=== PATIENT | female | born 1940 | race Caucasian/White ===

== ENCOUNTER → 2016-09-23 | Outpatient (CLI) | payer MEDICARE ==
[~2016-09-23] MED LIST: AMLO2.5T PO; ATEN1TAB73 PO; CIPR250T52 PO; METR-1 PO; PROBCAP4 PO
== END ==
LOC: PLAB 10:20
PROVIDERS: ATTEND Internal Medicine Gastroenterology
DX: R10.32 Left lower quadrant pain (principal)
CPT/HCPCS: 36415; 82565; 84520

== ENCOUNTER 2017-03-13 12:25 | Emergency (ER) | payer MEDICARE ==
[~2017-03-13] VITALS: Ht 162.6 cm; Wt 56.2 kg
[2017-03-13 12:25] VITALS: BP 162/78; PULSE 70; RESP 16; TEMP 98.2; O2SAT 98
[~2017-03-13 12:25] MED LIST changes: -CIPR250T52 PO; -METR-1 PO
[2017-03-13 13:50] LABS: BLOOD, URINE NEG (NEG); GLUCOSE,URINE NEG (NEG); KETONE, URINE NEG (NEG); NITRITE,URINE NEG (NEG)
[2017-03-13] MEDS ORDERED: CIPR250T52 PO (13:50)
[2017-03-13] MEDS ORDERED: METR-1 PO (13:50)
--- NOTE | 2017-03-13 13:50 | PD ---
HPI Chief Complaint: GI Complaint Time Seen by Provider: 13:44 Travel History International Travel<30 days: No Contact w/Intl Traveler<30days: No Traveled to known affect area: No History of Present Illness HPI 77-year-old female here with complaint of abdominal pressure, frequent stools and flatus. Patient has had now 6 days of pressure within the suprapubic and left lower quadrant. Associated frequent stools. This is not diarrhea, but is soft and formed. No hematochezia. She notes associated frequent flatus. Patient states that she has had several bouts of this over the course the last several years most recently September 2016. She has a history of diverticulosis but no diverticulitis. Patient states that in September [address] scan that was negative for diverticulitis in association with this pain. She was diagnosed with possible colitis versus treated with Cipro and Flagyl with improvement of her symptoms within 2-3 days. No fevers, chills, urinary symptoms. PFSH Past Medical History Arthritis: Yes (OSTEO) Autoimmune Disease: No Cancer: No Cardiovascular Problems: Yes (HTN) High Cholesterol: Yes Diabetes: No Diminished Hearing: No Endocrine: No Gastrointestinal Disorders: Yes (GAS PAIN; PRESSURE ) Glaucoma: No Genitourinary: Yes (CYSTOCELE; BLADDER PROLAPSE REPAIRED) Hepatitis: No Hiatal Hernia: No Hypertension: Yes Immune Disorder: No Implanted Vascular Access Dvce: No Medical other: No Musculoskeletal: No Neurologic: No Psychiatric: No Reproductive: Yes (HYSTERECTOMY) Respiratory: Yes (HX PNEUMONIA YEARS AGO) Thyroid Disease: No Tetanus Vaccination: Unknown ?: Not Menopausal: Yes Tubal Ligation: Yes Past Surgical History Abdominal Surgery: Yes (SABRINA.) AICD: No Body Medical Devices: PT WEARS A PESSARY Cardiac Surgery: No Cholecystectomy: Yes Ear Surgery: No Endocrine Surgery: No Eye Surgery: No Genitourinary Surgery: Yes (INGUINAL HERNIA LEFT X 2, FEMORAL HERNIA) Gynecologic Surgery: Yes (TUBAL LIGATION, TOTAL HYSTERECTOMY WITH A AND P REPAIR) Hysterectomy: Yes Joint Replacement: No Neurologic Surgery: No Oral Surgery: Yes (T&A) Pacemaker: No Thoracic Surgery: Yes (LAURA BREAST BX X 3 ALL BENIGN) Tonsillectomy: Yes Other Surgery: Yes (BREAST BIOPSY X 3) Social History Alcohol Use: No Tobacco Use: Yes (VAPOR) Substance Use: No Allergies-Medications (Allergen,Severity, Reaction): Coded Allergies: Lisinopril (Unverified Adverse Reaction, Severe, GI upset, 03/13/17) Reported Meds & Prescriptions Reported Meds & Active Scripts Active Flagyl (Metronidazole) 500 Mg Tab 500 Mg PO TID 7 Days Cipro (Ciprofloxacin HCl) 250 Mg Tab 750 Mg PO BID 7 Days Review of Systems Except as stated in HPI: all other systems reviewed are Neg Physical Exam Narrative GENERAL: Well-appearing female in no acute distress SKIN: Focused skin assessment warm/dry. HEAD: Normocephalic. EYES: No scleral icterus. No injection or drainage. ENT: Mucous membranes pink and moist. NECK: Supple CARDIOVASCULAR: Regular rate and rhythm. RESPIRATORY: No accessory muscle use. GASTROINTESTINAL: Abdomen soft, minimal suprapubic and left lower quadrant tenderness to palpation without rebound or guarding MUSCULOSKELETAL: No obvious deformities. No edema. NEUROLOGICAL: Awake and alert. Normal speech. PSYCHIATRIC: Appropriate mood and affect; insight and judgment normal. Data Data Last Documented VS Vital Signs Date Time Temp Pulse Resp B/P Pulse Ox O2 Delivery O2 Flow Rate FiO2 03/13/17 12:25 98.2 70 16 162/78 98 Orders Urinalysis - C+S If Indicated (03/13/17 13:42) MDM Medical Decision Making Medical Screen Exam Complete: Yes Emergency Medical Condition: Yes Medical Record Reviewed: Yes Differential Diagnosis 77-year-old female with history of 6 days of suprapubic and left lower quadrant pressure, frequent stools and flatus. History of similar episodes periodically over the last several years. Symptoms sound consistent with colitis or diverticulitis though patient has had negative CT scans in association with this in the past. Differential includes inflammatory bowel disease, irritable bowel disease and less likely peritoneal pathology given her overall benign abdominal examination. Narrative Course Patient was offered laboratory testing and CT imaging but declines, states that she's had similar episodes in the past and requests simply treatment. Given her history and benign abdominal examination, I think a course of Cipro and Flagyl is a reasonable option. Patient was given prescriptions for these and discharged home with return instructions. Diagnosis Primary Impression: Colitis Referrals: Primary Care Physician as needed Additional Instructions: Antibiotics as prescribed. Follow-up with primary care and/or GI physician is symptoms persist and return to the ER for the warning signs discussed. Med/Other Pt SpecificInfo: Prescription(s) given Scripts Metronidazole (Flagyl)500 Mg [id number] Mg PO TID 7 Days Ref 0 Prov:Beatriz Goetz MD 03/13/17 Ciprofloxacin (Cipro)250 Mg [id number] Mg PO BID 7 Days Ref 0 Prov:Beatriz Goetz MD 03/13/17 Disposition: 01 DISCHARGE HOME Condition: Stable Beatriz Goetz MD Mar 13, 2017 13:50
[2017-03-13 13:54] LABS: METHOD OF COLLECTION CLEAN CATCH; URINE COLOR YELLOW (YELLW/STRAW)
[2017-03-13 13:56] LABS: COMMENT (UR) CULT NOT INDICATED; CULTURE IF INDICATED CULT NOT INDICATED
== END 2017-03-13 13:57 | disposition home or self-care (01) ==
LOC: PHED 12:25
DX: K52.9 Noninfective gastroenteritis and colitis, unspecified (principal); I10 Essential (primary) hypertension; E78.00 Pure hypercholesterolemia, unspecified
CPT/HCPCS: 81001; 99284

== ENCOUNTER → 2017-05-14 | Outpatient (CLI) | payer MEDICARE ==
[~2017-05-14] MED LIST changes: -AMLO2.5T PO; -ATEN1TAB73 PO; +CIPR250T52 PO; +METR-1 PO; -PROBCAP4 PO
[2017-05-14 09:12] LABS: MEAN CELL VOLUME 90.6 FL (80.0-100.0); MEAN CORPUSCULAR HEMOGLOBIN 30.2 PG (27.0-34.0); MEAN CORPUSCULAR HGB CONC 33.4 % (32.0-36.0); PLATELET COUNT 355 TH/MM3 (150-450); RED BLOOD COUNT 4.52 MIL/MM3 (4.00-5.30); RED CELL DISTRIBUTION WIDTH 14.9 % (11.6-17.2); REVIEW FLAG FINAL; WHITE BLOOD COUNT 9.3 TH/MM3 (4.0-11.0)
[2017-05-14 09:41] LABS: ALT (GPT) 21 U/L (10-53); ANION GAP 7 MEQ/L (5-15); AST (GOT) 18 U/L (15-37); BICARBONATE 25.8 MEQ/L (21.0-32.0); BLOOD UREA NITROGEN 16 MG/DL (7-18); CHLORIDE 104 MEQ/L (98-107); GLOMERULAR FILTRATION RATE 49 ML/MIN (>89); GLUCOSE,FASTING 86 MG/DL (74-99); POTASSIUM 4.6 MEQ/L (3.5-5.1); SODIUM (NA) 137 MEQ/L (136-145)
[2017-05-14 09:51] LABS: ALKALINE PHOSPHATASE 65 U/L (45-117); HDL CHOLESTEROL 44.3 MG/DL (40.0-60.0); LDL CHOLESTEROL 156 MG/DL (0-99); TOTAL BILIRUBIN ADULT 0.6 MG/DL (0.2-1.0)
== END ==
LOC: PLAB 06:58
PROVIDERS: ATTEND Family Medicine
DX: I12.9 Hypertensive chronic kidney disease with stage 1 through stage 4 chronic kidney disease, or unspecified chronic kidney disease (principal); N18.3 Chronic kidney disease, stage 3 (moderate); E78.00 Pure hypercholesterolemia, unspecified
CPT/HCPCS: 36415; 80053; 80061; 84443; 85027

== ENCOUNTER → 2018-02-18 | Outpatient (CLI) | payer MEDICARE ==
[2018-02-18 10:08] LABS: HEMOGLOBIN 14.5 GM/DL (11.6-15.3); MEAN CELL VOLUME 87.7 FL (80.0-100.0); MEAN CORPUSCULAR HEMOGLOBIN 29.6 PG (27.0-34.0); MEAN CORPUSCULAR HGB CONC 33.8 % (32.0-36.0); MEAN PLATELET VOLUME 7.4 FL (7.0-11.0); PLATELET COUNT 414 TH/MM3 (150-450); RED CELL DISTRIBUTION WIDTH 14.3 % (11.6-17.2); WHITE BLOOD COUNT 8.6 TH/MM3 (4.0-11.0)
[2018-02-18 10:17] LABS: ALBUMIN 3.5 GM/DL (3.4-5.0); AST (GOT) 21 U/L (15-37); BICARBONATE 24.9 MEQ/L (21.0-32.0); BLOOD UREA NITROGEN 24 MG/DL (7-18); CALCIUM 9.1 MG/DL (8.5-10.1); CHLORIDE 105 MEQ/L (98-107); CREATININE 1.33 MG/DL (0.50-1.00); GLOMERULAR FILTRATION RATE 39 ML/MIN (>89); GLUCOSE,FASTING 97 MG/DL (74-99); SODIUM (NA) 139 MEQ/L (136-145)
[2018-02-18 10:18] LABS: CHOLESTEROL 232 MG/DL (120-200)
[2018-02-18 10:29] LABS: ALKALINE PHOSPHATASE 69 U/L (45-117); ALT (GPT) 25 U/L (10-53); CHOLESTEROL/ HDL RATIO 5.04 RATIO; LDL CHOLESTEROL 168 MG/DL (0-99); TOTAL BILIRUBIN ADULT 0.4 MG/DL (0.2-1.0); TOTAL PROTEIN 7.3 GM/DL (6.4-8.2); TRIGLYCERIDES 91 MG/DL (42-150)
== END ==
LOC: PLAB 06:43
PROVIDERS: ATTEND Family Medicine
DX: I12.9 Hypertensive chronic kidney disease with stage 1 through stage 4 chronic kidney disease, or unspecified chronic kidney disease (principal); N18.3 Chronic kidney disease, stage 3 (moderate); E78.5 Hyperlipidemia, unspecified; E78.00 Pure hypercholesterolemia, unspecified
CPT/HCPCS: 36415; 80053; 80061; 84443; 85027